=== PATIENT | male | born 1980 | race Two or more races ===

== ENCOUNTER 2016-04-26 23:09 | Emergency (ER) | payer BC ==
[2016-04-27] MEDS ORDERED: ONDANSETRON HCL INJ/PF 4 MG/2 ML SDV IV ONE (02:13)
[2016-04-27] MEDS ORDERED: ACETAMINOPHEN 325 MG TABLET PO ONE (02:13)
[2016-04-27] MEDS ORDERED: NORMAL SALINE 1000 ML 1,000 ML IV ONE (02:13)
--- NOTE | 2016-04-27 02:15 | ER Document Report ---
ED GI/ - General Chief Complaint: Nausea/Vomiting/Diarrhea Stated Complaint: POSSIBLE DEHYDRATION Time seen by provider: 02:10 Notes: Patient is a 36-year-old male that comes emergency department for chief complaint of vomiting, upper abdominal pain, diarrhea, body aches, and fever. Symptoms started yesterday, fever started today. Patient reports occasional cough. Patient has had the flu vaccine. Patient denies any surgeries or medical problems. Patient denies any obvious sick contacts, denies recent antibiotics. TRAVEL OUTSIDE OF THE [place] IN LAST 30 DAYS: No - Related Data Allergies/Adverse Reactions: No Known Allergies Allergy (Verified 04/26/16 23:43) Past Medical History - General Information source: Patient - Social History Smoking Status: Never Smoker Chew tobacco use (# tins/day): No Frequency of alcohol use: None Drug Abuse: None Lives with: Family Family History: Reviewed & Not Pertinent Patient has suicidal ideation: No Patient has homicidal ideation: No - Medical History Medical History: Negative Renal/ Medical History: Denies: Hx Peritoneal Dialysis Past Surgical History: Reports: Hx Orthopedic Surgery - R shoulder Review of Systems - Review of Systems Constitutional: See HPI EENT: No symptoms reported Cardiovascular: No symptoms reported Respiratory: No symptoms reported Gastrointestinal: See HPI Genitourinary: No symptoms reported Male Genitourinary: No symptoms reported Musculoskeletal: See HPI Skin: No symptoms reported Hematologic/Lymphatic: No symptoms reported Neurological/Psychological: No symptoms reported Physical Exam - Vital signs Vitals: Temp Pulse Resp BP Pulse Ox 99.0 F 120 H 20 131/70 H 96 04/26/16 23:13 04/26/16 23:13 04/26/16 23:13 04/26/16 23:13 04/26/16 23:13 Interpretation: Normal - General General appearance: Appears well In distress: None - HEENT Head: Normocephalic, Atraumatic Eyes: Normal Conjunctiva: Normal Extraocular movements intact: Yes Eyelashes: Normal Pupils: PERRL Sinus: Normal Nasal: Normal Mouth/Lips: Normal Mucous membranes: Normal Pharynx: Normal Neck: Normal - Respiratory Respiratory status: No respiratory distress Chest status: Nontender Breath sounds: Normal Chest palpation: Normal - Cardiovascular Rhythm: Regular, Tachycardia Heart sounds: Normal auscultation, S1 appreciated, S2 appreciated Murmur: No - Abdominal Inspection: Normal Distension: No distension Bowel sounds: Normal Tenderness: Tender - Very mild upper abdominal pain, otherwise soft benign abdomen Organomegaly: No organomegaly - Back Back: Normal, Nontender. No: Tender - Extremities General upper extremity: Normal inspection, Nontender, Normal ROM, Normal strength General lower extremity: Normal inspection, Nontender, Normal ROM, Normal strength - Neurological Neuro grossly intact: Yes Cognition: Normal Orientation: AAOx4 Cisco Coma Scale Eye Opening: Spontaneous Cisco Coma Scale Verbal: Oriented Cisco Coma Scale Motor: Obeys Commands Cisco Coma Scale Total: 15 Speech: Normal Motor strength normal: LUE, RUE, LLE, RLE Sensory: Normal - Psychological Associated symptoms: Normal affect, Normal mood - Skin Skin Temperature: Warm Skin Moisture: Dry Skin Color: Normal Course - Re-evaluation Re-evalutation: Patient tachycardic, somewhat dry mucous membranes, otherwise unremarkable physical exam with very mild upper abdominal tenderness. CBC, chemistry unremarkable. Patient asymptomatic on reevaluation after Tylenol, Zofran, IV fluids. Tachycardia resolved. Suspect viral syndrome. Discussed treatment for this in detail, discussed return precautions, patient states understanding and agreement. - Vital Signs Vital signs: Temp Pulse Resp BP Pulse Ox 98.6 F 83 18 110/66 96 04/27/16 04:43 04/27/16 04:43 04/27/16 04:43 04/27/16 04:43 04/27/16 04:43 - Laboratory Result Diagrams: 04/27/16 02:32 04/27/16 02:32 Laboratory results interpreted by me: 04/27/16 02:32 Monocytes % 14.8 H Discharge - Discharge Clinical Impression: Tachycardia, Dehydration Fever Qualifiers: Fever type: unspecified Qualified Code(s): R50.9 - Fever, unspecified Nausea & vomiting Qualifiers: Vomiting type: unspecified Vomiting Intractability: non-intractable Qualified Code(s): R11.2 - Nausea with vomiting, unspecified Disposition: HOME, SELF-CARE Additional Instructions: You have been rehydrated here, take Zofran for nausea, take Pepcid as directed. Continue rehydration at home. Laboratory workup, examination, and symptoms are most consistent with a viral syndrome. Take ibuprofen or Tylenol regularly if needed for fever and body aches. Rest, progress to bland foods, follow-up with primary care. Return to the emergency department for any concerning or worsening symptoms including uncontrollable vomiting, severe abdominal pain, etc. Prescriptions: Famotidine [Pepcid 20 mg Tablet] 20 mg PO BID #12 tablet Ondansetron [Zofran Odt 4 mg Tablet] 1 - 2 tab PO Q4H PRN #15 tab.rapdis PRN Reason: For Nausea/Vomiting Forms: Return to Work
[2016-04-27 02:48] LABS: ABSOLUTE LYMPHOCYTES (AUTO) 0.8 10^3/uL (0.5-4.7); ABSOLUTE MONOCYTES (AUTO) 0.8 10^3/uL (0.1-1.4); ABSOLUTE NEUT (AUTO) 3.5 10^3/uL (1.7-8.2); BASOPHILS % (AUTO) 0.2 % (0-2); HEMATOCRIT 40.8 % (37.9-51.0); HEMOGLOBIN 14.2 g/dL (13.5-17.0); HGB HCT DIFFERENCE 1.8; LYMPHOCYTES % (AUTO) 15.3 % (13-45); MEAN CORPUSCULAR HEMOGLOBIN 31.5 pg (27.0-33.4); MEAN CORPUSCULAR HGB CONC 34.9 g/dL (32.0-36.0); MEAN CORPUSCULAR VOLUME 90 fl (80-97); MONOCYTES % (AUTO) 14.8 % (3-13); RED BLOOD COUNT 4.52 10^6/uL (4.35-5.55); RED CELL DISTRIBUTION WIDTH 12.5 % (11.5-14.0); SEGMENTED NEUTROPHILS % (AUTO) 69.7 % (42-78); WHITE BLOOD COUNT 5.1 10^3/uL (4.0-10.5)
[2016-04-27 03:04] LABS: ALANINE AMINOTRANSFERASE 54 U/L (21-72); ALBUMIN 4.1 g/dL (3.5-5.0); ALKALINE PHOSPHATASE 75 U/L (38-126); ANION GAP 12 (5-19); ASPARTATE AMINO TRANSFERASE 32 U/L (17-59); BILIRUBIN,TOTAL 0.8 mg/dL (0.2-1.3); BLOOD UREA NITROGEN 10 mg/dL (7-20); CALCIUM 8.8 mg/dL (8.4-10.2); CARBON DIOXIDE 25 mmol/L (22-30); CHLORIDE 101 mmol/L (98-107); CREATININE RESULT 0.79 mg/dL (0.52-1.25); GLUCOSE 97 mg/dL (75-110); POTASSIUM 3.7 mmol/L (3.6-5.0); SODIUM 137.7 mmol/L (137-145); TOTAL PROTEIN 7.2 g/dL (6.3-8.2)
[2016-04-27] MEDS ORDERED: ONDANSETRON ODT 4 MG TAB (6 TAB/DSPK) PO PRN (04:15)
[2016-04-27 04:43] VITALS: BP 110/66
== END 2016-04-27 04:45 | disposition home or self-care (01) ==
LOC: ER 23:09
DX: R10.10 Upper abdominal pain, unspecified (principal); E86.0 Dehydration; R00.0 Tachycardia, unspecified; R50.9 Fever, unspecified; R19.7 Diarrhea, unspecified; R11.2 Nausea with vomiting, unspecified
CPT/HCPCS: 99283; 96374; 36415; 85025; 80053; J2405

== ENCOUNTER 2018-01-31 21:16 | Emergency (ER) | payer BC ==
[2018-01-31] MEDS ORDERED: ASPIRIN 81 MG TABLET, CHEWABLE PO ONE (21:29)
--- NOTE | 2018-01-31 21:57 | RADIOLOGY REPORT (SQ) ---
EXAM DESCRIPTION: XR CHEST 1 VIEW COMPLETED DATE/TME: 01/31/2018 21:29 CLINICAL HISTORY: 37 years, Male, cp Findings: The heart is not enlarged. Aorta is within normal limits. No consolidation or pleural effusion. No pulmonary edema or pneumothorax. IMPRESSION: No acute disease.
--- NOTE | 2018-01-31 23:15 | ER Document Report ---
ED Medical Screen (RME) - General Chief Complaint: Chest Pain Stated Complaint: LEFT ARM/SHOULDER NUMBNESS Time Seen by Provider: 01/31/18 23:12 Notes: 37-year-old male chief complaint of left sided chest pain that extends up to his shoulder and up towards his neck, started at noon, at first felt uncomfortable and then worsened, now he states it is almost completely resolved. Denies difficulty breathing, vomiting, fever, injury. Denies history of the same. Does not smoke, denies recreational drugs, denies any medications except Valtrex daily. No family history of the same. TRAVEL OUTSIDE OF THE [place] IN LAST 30 DAYS: No - Related Data Allergies/Adverse Reactions: No Known Allergies Allergy (Verified 04/26/16 23:43) Past Medical History Renal/ Medical History: Denies: Hx Peritoneal Dialysis Past Surgical History: Reports: Hx Orthopedic Surgery - R shoulder Physical Exam - Vital signs Vitals: Temp Pulse Resp BP Pulse Ox 98.4 F 77 15 127/88 H 97 01/31/18 21:44 01/31/18 21:44 01/31/18 21:44 01/31/18 21:44 01/31/18 21:44 - Respiratory Respiratory status: No respiratory distress Breath sounds: Normal. No: Decreased air movement, Wheezing - Cardiovascular Rhythm: Regular. No: Tachycardia Heart sounds: Normal auscultation, S1 appreciated, S2 appreciated Course - Vital Signs Vital signs: Temp Pulse Resp BP Pulse Ox 98.4 F 77 15 127/88 H 97 01/31/18 21:44 01/31/18 21:44 01/31/18 21:44 01/31/18 21:44 01/31/18 21:44
[2018-01-31 23:39] LABS: ABSOLUTE EOSINOPHILS # (AUTO) 0.1 10^3/uL (0.0-0.6); ABSOLUTE LYMPHOCYTES (AUTO) 2.2 10^3/uL (0.5-4.7); ABSOLUTE MONOCYTES (AUTO) 0.5 10^3/uL (0.1-1.4); BASOPHILS % (AUTO) 0.7 % (0-2); EOSINOPHILS % (AUTO) 2.5 % (0-6); HEMATOCRIT 43.6 % (37.9-51.0); HEMOGLOBIN 15.6 g/dL (13.5-17.0); MEAN CORPUSCULAR HEMOGLOBIN 32.3 pg (27.0-33.4); MEAN CORPUSCULAR HGB CONC 35.7 g/dL (32.0-36.0); MEAN CORPUSCULAR VOLUME 90 fl (80-97); MONOCYTES % (AUTO) 8.5 % (3-13); PLATELET COUNT 270 10^3/uL (150-450); RED BLOOD COUNT 4.82 10^6/uL (4.35-5.55); RED CELL DISTRIBUTION WIDTH 12.4 % (11.5-14.0); SEGMENTED NEUTROPHILS % (AUTO) 50.3 % (42-78); TOTAL CELLS COUNTED % (AUTO) 100 %; WHITE BLOOD COUNT 5.9 10^3/uL (4.0-10.5)
[2018-01-31 23:57] LABS: ALANINE AMINOTRANSFERASE 43 U/L (21-72); ALBUMIN 4.9 g/dL (3.5-5.0); ALKALINE PHOSPHATASE 82 U/L (38-126); ANION GAP 15 (5-19); ASPARTATE AMINO TRANSFERASE 28 U/L (17-59); BILIRUBIN,DIRECT 0.1 mg/dL (0.0-0.4); BILIRUBIN,TOTAL 0.5 mg/dL (0.2-1.3); BLOOD UREA NITROGEN 16 mg/dL (7-20); CALCIUM 9.8 mg/dL (8.4-10.2); CARBON DIOXIDE 26 mmol/L (22-30); CHLORIDE 100 mmol/L (98-107); GLUCOSE 98 mg/dL (75-110); POTASSIUM 4.3 mmol/L (3.6-5.0); SODIUM 141.4 mmol/L (137-145); TOTAL PROTEIN 7.8 g/dL (6.3-8.2)
--- NOTE | 2018-02-01 02:45 | ER Document Report ---
ED General - General Chief Complaint: Chest Pain Stated Complaint: LEFT ARM/SHOULDER NUMBNESS Time Seen by Provider: 01/31/18 23:12 Notes: 37-year-old male with chief complaint of left sided chest pain that extends up to his shoulder and up towards his neck started at 12:30 p.m. At first it felt uncomfortable and then worsened, now he states it is completely resolved. He denies headache, diaphoresis, dyspnea, fever, nausea, vomiting, trauma or injury. He does say that he was horse playing with his young child yesterday and could have possibly strained a muscle doing that. He does not smoke, denies recreational drugs, denies any medications except Valtrex daily. No family history of the same. TRAVEL OUTSIDE OF THE [place] IN LAST 30 DAYS: No - Related Data Allergies/Adverse Reactions: No Known Allergies Allergy (Verified 04/26/16 23:43) Past Medical History - Social History Smoking Status: Never Smoker Chew tobacco use (# tins/day): No Frequency of alcohol use: None Drug Abuse: None Family History: Reviewed & Not Pertinent Patient has suicidal ideation: No Patient has homicidal ideation: No Renal/ Medical History: Denies: Hx Peritoneal Dialysis Past Surgical History: Reports: Hx Orthopedic Surgery - R shoulder Review of Systems - Review of Systems Constitutional: See HPI EENT: See HPI Cardiovascular: See HPI Respiratory: See HPI Gastrointestinal: See HPI Genitourinary: No symptoms reported Male Genitourinary: No symptoms reported Musculoskeletal: See HPI Skin: No symptoms reported Hematologic/Lymphatic: No symptoms reported Neurological/Psychological: No symptoms reported Physical Exam - Vital signs Vitals: Temp Pulse Resp BP Pulse Ox 98.4 F 77 15 127/88 H 97 01/31/18 21:44 01/31/18 21:44 01/31/18 21:44 01/31/18 21:44 01/31/18 21:44 - Notes Notes: Reviewed vital signs and nursing note as charted by RN. CONSTITUTIONAL: Well-appearing, well-nourished, acting appropriately for age HEAD: Normocephalic, atraumatic, no swelling EYES: PERRL, Conjunctivae clear, no drainage, EOMI, no scleral icterus ENT: External ears without lesions, External auditory canal is patent, airway patent, mucous membranes pink and moist NECK: Supple, no cervical lymphadenopathy, no masses CARD: Regular rate and rhythm, no murmurs, no rubs, no gallops, capillary refill < 2 seconds, symmetric pulses RESP: The lungs are clear to auscultation bilaterally, no wheezing, no rales, no rhonchi. Respiratory rate and effort are normal, normal chest excursion. No respiratory distress, no retractions, no stridor, no nasal flaring, no accessory muscle use. ABD/GI: Normal bowel sounds, non-distended, soft, non-tender, no rebound, no guarding, no palpable organomegaly EXT: Normal ROM in all joints, non-tender to palpation, no effusions, no edema SKIN: Normal color for age and race, warm, dry, good turgor, no acute lesions noted NEURO: No facial asymmetry, moves all extremities equally, motor and sensory function intact Course - Re-evaluation Re-evalutation: 02/01/18 03:16 37-year-old healthy male who presents to the emergency department with concern for chest pain. He said that it started about 1230 yesterday afternoon and was in his left upper chest left shoulder and has some mild numbness in his neck. Heart score 0. Troponin negative. EKG normal. Chest x-ray normal. Patient no cardiac risk factors or family history. Patient with reproducible chest wall pain more so in the posterior aspect along his trapezius. I have very low suspicion for cardiac etiology like AMI, aortic dissection, aortic aneurysm. I reassured patient that this is most likely muscle wall pain and he is safe to discharge home. - Vital Signs Vital signs: Temp Pulse Resp BP Pulse Ox 98.4 F 77 21 H 117/85 100 01/31/18 21:44 01/31/18 21:44 02/01/18 02:01 02/01/18 02:01 02/01/18 02:01 - Laboratory Result Diagrams: 01/31/18 23:20 01/31/18 23:20 Discharge - Discharge Clinical Impression: Chest wall pain Condition: Good Disposition: HOME, SELF-CARE Instructions: Chest Wall Pain ([facility]) Additional Instructions: You were seen in the emergency department this evening for chest pain. Your labs, your chest x-ray, and your EKG were all reassuring was no evidence of any damage to your heart. It is most likely chest wall pain due to muscle strain that you may not have realized happened. You can take Motrin 600 mg 4 times a day and Tylenol 1000 mg 4 times a day as well. If you have severe chest pain that is unremitting and radiates to your arms or anywhere, break out into cold sweat, nausea, you pass out, or have any other concerning symptoms please immediately return to the emergency department. Referrals: BETH ROSAS PA-C [PHYSICIAN CARDIOTHORACIC ANESTHESIA TECHNICIAN] - Follow up as needed
[2018-02-01 02:48] VITALS: BP 117/85
--- NOTE | 2018-02-01 10:00 | EKG REPORT ---
SEVERITY:- NORMAL ECG - SINUS RHYTHM : Confirmed by: Perla Hannah MD 01-Feb-2018 09:59:06
== END 2018-02-01 02:56 | disposition home or self-care (01) ==
LOC: ER 21:16
DX: R07.89 Other chest pain (principal)
CPT/HCPCS: 36415; 71045; 80053; 84484; 85025; 93005; 93010; 99284